=== PATIENT | female | born 1965 | race Caucasian/White ===

== ENCOUNTER 2017-11-14 10:24 | Inpatient (IN) ==
[2017-11-14] MEDS ORDERED: 0.9 % Sodium Chloride 1,000 ML IVC ONE (10:50)
[2017-11-14] MEDS ORDERED: Isovue-370 500 ML INFUS..BTL IV ONE (10:50)
[2017-11-14] MEDS ORDERED: Clindamycin 900 MG/50 ML 900 MG/50 ML IV.SOLN IVPB ONE (10:50)
--- NOTE | 2017-11-14 11:02 | Emergency Department Note ---
Disposition Clinical Impression: Periorbital cellulitis Qualifiers: Laterality: right Qualified Code(s): L03.213 - Periorbital cellulitis Disposition: Admitted As Inpatient Condition: Good Referrals: Tita Golden CNP [Primary Care Provider] - Forms: ED Satisfaction Letter Time of Disposition: 14:30 Dental HPI - General Chief complaint: ED Dental/Oral Stated complaint: dental abscess Time Seen by Provider: 11/14/17 10:43 Source: patient Mode of arrival: ambulatory Limitations: no limitations Nursing Notes Reviewed: Yes Vital Signs Reviewed: Yes - History of Present Illness HPI Narrative: 51 year old female presntes to the ED with complaints of dental abscess and facial pain. She states that she has 9 teeth she plans on having removed over time and it trying to get the money together to have them reoved. PAtinet states that she has two decaying teeth on the right upper molar in her mouth that are likely the source She was seen at urgent care yesterday and treated with clindarmycin and discharge home and states that this morning she wokeup and it was wrose. She had swelling in the right side of her face to her orbits of her eyes without pain with EOM. PAtinet states that she has had mild nausea. Patinet states that she is concerned that the infection is worsenig. No elevation to her tongue and no difficulty with swalowing or breathing. NO fevers. - Related Data Home Medications Medication Instructions Recorded Confirmed Abilify 01/03/15 01/03/15 Adderall 10 mg Tablet 01/03/15 01/03/15 Flexeril 01/03/15 01/03/15 Hydrochlorothiazide 01/03/15 01/03/15 Neurontin 01/03/15 01/03/15 [place] 10-325 mg 01/03/15 01/03/15 [place]-3 01/03/15 01/03/15 Pantoprazole Sodium 01/03/15 01/03/15 Proair Hfa 01/03/15 01/03/15 Previous Rx's Medication Instructions Recorded predniSONE [Prednisone] 20 mg PO DAILY #16 tablet 01/03/15 Cephalexin [Keflex] 1 g PO BID #40 capsule 12/04/16 Cyclobenzaprine [Flexeril] 10 mg PO TID #15 tablet 07/01/17 Allergies Allergy/AdvReac Type Severity Reaction Status Date / Time acetaminophen [From Percocet] Allergy Rash Verified 12/04/16 11:35 armodafinil [From Nuvigil] Allergy Rash Verified 12/04/16 11:40 baclofen Allergy Rash Verified 12/04/16 11:40 ibuprofen Allergy Rash Verified 12/04/16 11:40 meloxicam Allergy Nausea Verified 12/04/16 11:40 milnacipran Allergy Rash Verified 12/04/16 11:40 modafinil [From Provigil] Allergy Rash Verified 12/04/16 11:40 Oxaprozin Allergy Nausea Verified 12/04/16 11:40 Oxycodone [From Percocet] Allergy Rash Verified 12/04/16 11:35 Penicillins [PCN] Allergy Rash Verified 12/04/16 11:35 pregabalin Allergy Rash Verified 12/04/16 11:40 tramadol Allergy Rash Verified 12/04/16 11:40 Constitutional: Denies: fever, chills, weakness, weight change Eyes: Denies: eye pain, eye discharge, vision change ENT ED: Reports: dental pain, other (facial swelling). Denies: ear pain, throat pain, hearing loss, epistaxis, congestion, dysphagia Cardiovascular: Denies: chest pain, palpitations, dyspnea on exertion, edema, syncope Respiratory: Denies: cough, dyspnea, wheezes, hemoptysis, stridor Gastrointestinal: Denies: abdominal pain, nausea, vomiting, diarrhea, constipation, hematemesis, melena, hematochezia Genitourinary: Denies: dysuria, frequency, hematuria, discharge Musculoskeletal: Denies: back pain, neck pain, arthralgia, myalgia Integumentary: Denies: rash, abrasion, lesions Neurological: Denies: headache, weakness, numbness, paresthesias, confusion, abnormal gait, vertigo Psychiatric: Denies: anxiety, depression, suicidal thoughts, homicidal thoughts , auditory hallucinations, visual hallucinations Endocrine: Denies: fatigue Hematological/Lymphatic: Denies: easy bleeding, easy bruising Allergic/Immunologic: Denies: facial swelling, urticaria Past Medical History - Past Medical History Medical history: Reports: non-contributory, other Psychiatric history: Reports: depression - Social History Smoking Status: Never smoker Smokeless Tobacco Status: No Alcohol use: Reports: none Drug use: Reports: none Physical Exam - General Limitations: no limitations General appearance: alert, in no apparent distress - Head Head exam: atraumatic, normocephalic, normal inspection - Eye Eye exam: Present: normal appearance, PERRL, EOMI, periorbital swelling, periorbital tenderness. Absent: conjunctival injection - Expanded Eye Exam Eyelids: right: swelling eyelids Pupils: Bilateral: reactive - ENT ENT exam: normal exam, normal oropharynx, mucous membranes moist - Expanded ENT Exam External ear exam: Present: normal external inspection TM/Canal: Hemotympanum: Negative, Erythema: Negative, Bulging: Negative Nasal speculum exam: Bilateral: normal Mouth exam: Present: normal external inspection, tongue normal. Absent: drooling, trismus, lip swelling, tongue elevation, tounge swelling Teeth exam: Present: dental caries, dental tenderness # 1 - Dental Tenderness (decay) 2 - Fractured, Dental Tenderness (decay) Throat exam: Present: normal inspection - Neck Neck exam: Present: normal inspection, full ROM, trachea midline - Chest Chest inspection: Present: normal inspection, symmetric chest wall rise - Respiratory Respiratory exam: Present: normal lung sounds bilaterally - Cardiovascular Cardiovascular exam: Present: regular rate, normal rhythm, normal heart sounds - Abdominal Exam Abdominal exam: Present: soft, Non-Tender. Absent: tenderness, distention, guarding, rebound, rigidity - Extremities Exam Extremities exam: Present: normal inspection, full ROM. Absent: tenderness, pedal edema - Expanded Upper Extremity Exam Shoulder exam: Present: normal inspection, full ROM Arm exam: Present: normal inspection, full ROM Elbow exam: Present: normal inspection, full ROM Forearm/Wrist exam: Present: normal inspection, full ROM Hand exam: Present: normal inspection, full ROM Vascular exam: Normal: capillary refill, radial pulse - Expanded Lower Extremity Exam Hip/Pelvis exam: Present: normal inspection, full ROM Upper leg exam: Present: normal inspection, full ROM Knee exam: Present: normal inspection, full ROM Lower leg exam: Present: normal inspection, full ROM Ankle exam: Present: normal inspection, full ROM Foot/toe exam: Present: normal inspection, full ROM Neurovascular/Tendon exam: Absent: motor deficit, sensory deficit, tendon deficit - Back Exam Back exam: Present: normal inspection, full ROM. Absent: tenderness - Neurological Exam Neurological exam: Present: alert, oriented X3 - Expanded Neurological Exam Patient oriented to: Present: person, place, time Coma Scale Eye Opening: Spontaneous Coma Scale Motor Response: Obeys Commands Coma Scale Verbal Response: Oriented Coma Scale Total: 15 - Psychiatric Psychiatric exam: Present: normal affect, normal mood - Skin Skin exam: Present: warm, dry, intact, normal color Course Course Narrative: we will do a CT of the face and neckand start IV ABX as this is like periorbital /orbital cellulitis secondary to a dental abscess and rule out Ludwigs - Reevaluation(s) Reevaluation #1: discusse and updated patient and she is agreeable for plan for admission Time: 14:29 - Consultations Consultation #1: discussed case witih Dr. Damon and he acepts patinet for admission. Time: 14:29 Vital Signs Temperature 97.8 F 11/14/17 10:25 Pulse Rate 93 11/14/17 10:25 Respiratory Rate 18 11/14/17 10:25 Blood Pressure 149/86 11/14/17 10:25 O2 Sat by Pulse Oximetry 97 11/14/17 10:25 Temperature 97.8 F 11/14/17 11:04 Pulse Rate 97 11/14/17 14:05 Respiratory Rate 18 11/14/17 14:05 Blood Pressure 129/85 11/14/17 14:05 O2 Sat by Pulse Oximetry 97 11/14/17 14:05 Oxygen Delivery Oxygen Delivery Room Air Dental/Oral - Lab Data Result diagrams: 11/14/17 11:02 11/14/17 11:02 Lab Results 11/14/17 11/14/17 11/14/17 Range/Units 11:02 11:02 11:02 WBC 7.0 (4.3-11.1) K/mcL RBC 4.59 (3.82-4.97) M/mcL Hgb 13.1 (11.5-15.4) g/dL Hct 38.9 (35.3-44.9) % MCV 84.7 (83.0-100.0) fL MCH 28.5 (28.0-33.3) pg MCHC 33.7 (31.6-35.5) g/dL RDW 14.1 (11.5-14.5) % Plt Count 253 (140-400) K/mcL MPV 10.2 (9.4-12.4) fL Immature Gran % 0.3 (0-4) % Seg Neutrophils % 70.7 % Lymphocytes % 19.0 % Monocytes % 7.6 % Eosinophils % 2.0 % Basophils % 0.4 % Neutrophils # 4.9 (1.6-8.9) K/mcL Lymphocytes # 1.3 (0.6-4.6) K/mcL Monocytes # 0.5 (0.0-1.3) K/mcL Eosinophils # 0.1 (0.0-0.6) K/mcL Basophils # 0.0 (0.0-0.2) K/mcL PT 10.6 (9.4-12.1) Seconds INR 1.0 APTT 37.5 H (26.0-36.0) Seconds Sodium 139 (136-145) mEq/L Potassium 4.1 (3.5-5.1) mEq/L Chloride 104 (98-107) mEq/L Carbon Dioxide 27 (23-29) mEq/L BUN 12 (6-20) mg/dL Creatinine 0.67 (0.60-1.20) mg/dL Est GFR ( Amer) > 60 (> 60) Est GFR (Non-Af Amer) > 60 (> 60) BUN/Creatinine Ratio 18 (6-26) Glucose 106 H (70-105) mg/dL Calculated Osmolality 288 (280-300) Lactic Acid (0.5-2.2) mmol/L Calcium 9.3 (8.6-10.3) mg/dL Phosphorus 2.6 L (2.7-4.5) mg/dL Magnesium 2.0 (1.6-2.6) mg/dL Total Bilirubin 0.4 (0.3-1.0) mg/dL Direct Bilirubin 0.2 (0.0-0.2) mg/dL Indirect Bilirubin 0.2 (0.0-1.2) mg/dL AST 17 (13-39) Units/L ALT 16 (7-52) Units/L Alkaline Phosphatase 106 H (34-104) Units/L Troponin I < 0.03 (< 0.04) ng/mL Serum Total Protein 7.1 (6.4-8.9) g/dL Albumin 4.0 (3.5-5.7) g/dL Globulin 3.1 (2.4-3.5) g/dL Albumin/Globulin Ratio 1.3 (1.1-2.2) 11/14/17 Range/Units 11:02 WBC (4.3-11.1) K/mcL RBC (3.82-4.97) M/mcL Hgb (11.5-15.4) g/dL Hct (35.3-44.9) % MCV (83.0-100.0) fL MCH (28.0-33.3) pg MCHC (31.6-35.5) g/dL RDW (11.5-14.5) % Plt Count (140-400) K/mcL MPV (9.4-12.4) fL Immature Gran % (0-4) % Seg Neutrophils % % Lymphocytes % % Monocytes % % Eosinophils % % Basophils % % Neutrophils # (1.6-8.9) K/mcL Lymphocytes # (0.6-4.6) K/mcL Monocytes # (0.0-1.3) K/mcL Eosinophils # (0.0-0.6) K/mcL Basophils # (0.0-0.2) K/mcL PT (9.4-12.1) Seconds INR APTT (26.0-36.0) Seconds Sodium (136-145) mEq/L Potassium (3.5-5.1) mEq/L Chloride (98-107) mEq/L Carbon Dioxide (23-29) mEq/L BUN (6-20) mg/dL Creatinine (0.60-1.20) mg/dL Est GFR ( Amer) (> 60) Est GFR (Non-Af Amer) (> 60) BUN/Creatinine Ratio (6-26) Glucose (70-105) mg/dL Calculated Osmolality (280-300) Lactic Acid 1.0 (0.5-2.2) mmol/L Calcium (8.6-10.3) mg/dL Phosphorus (2.7-4.5) mg/dL Magnesium (1.6-2.6) mg/dL Total Bilirubin (0.3-1.0) mg/dL Direct Bilirubin (0.0-0.2) mg/dL Indirect Bilirubin (0.0-1.2) mg/dL AST (13-39) Units/L ALT (7-52) Units/L Alkaline Phosphatase (34-104) Units/L Troponin I (< 0.04) ng/mL Serum Total Protein (6.4-8.9) g/dL Albumin (3.5-5.7) g/dL Globulin (2.4-3.5) g/dL Albumin/Globulin Ratio (1.1-2.2)
[2017-11-14 11:15] LABS: Basophils % 0.4 %; Eosinophils # 0.1 K/mcL (0.0-0.6); Hematocrit 38.9 % (35.3-44.9); Hemoglobin 13.1 g/dL (11.5-15.4); Immature Granulocytes % 0.3 % (0-4); Lymphocytes # 1.3 K/mcL (0.6-4.6); Mean Corpuscular HGB Conc 33.7 g/dL (31.6-35.5); Mean Corpuscular Hemoglobin 28.5 pg (28.0-33.3); Mean Corpuscular Volume 84.7 fL (83.0-100.0); Mean Platelet Volume 10.2 fL (9.4-12.4); Monocytes # 0.5 K/mcL (0.0-1.3); Monocytes % 7.6 %; Neutrophils # 4.9 K/mcL (1.6-8.9); Platelet Count 253 K/mcL (140-400); Red Blood Count 4.59 M/mcL (3.82-4.97); Red Cell Distribution Width 14.1 % (11.5-14.5); Segmented Neutrophils % 70.7 %
[2017-11-14 11:27] LABS: Troponin I < 0.03 ng/mL (< 0.04)
[2017-11-14 11:28] LABS: Prothrombin Time 10.6 Seconds (9.4-12.1)
[2017-11-14 11:31] LABS: Activated Partial Thrombo Time 37.5 Seconds (26.0-36.0)
[2017-11-14] MEDS ORDERED: Aztreonam 500 MG in 0.9 % Sodium Chloride 50 ML IVPB SCH (12:00)
[2017-11-14 12:29] LABS: Alanine Aminotransferase 16 Units/L (7-52); Albumin/Globulin Ratio 1.3 (1.1-2.2); Alkaline Phosphatase 106 Units/L (34-104); Aspartate Amino Transferase 17 Units/L (13-39); BUN/Creatinine Ratio 18 (6-26); Bilirubin,Direct 0.2 mg/dL (0.0-0.2); Bilirubin,Indirect 0.2 mg/dL (0.0-1.2); Bilirubin,Total 0.4 mg/dL (0.3-1.0); Blood Urea Nitrogen 12 mg/dL (6-20); Calcium 9.3 mg/dL (8.6-10.3); Carbon Dioxide 27 mEq/L (23-29); Chloride 104 mEq/L (98-107); Globulin 3.1 g/dL (2.4-3.5); Glucose 106 mg/dL (70-105); Osmolality,Calculated 288 (280-300); Phosphorous 2.6 mg/dL (2.7-4.5); Potassium 4.1 mEq/L (3.5-5.1); Sodium 139 mEq/L (136-145); Total Protein 7.1 g/dL (6.4-8.9); eGFR For African Americans > 60 (> 60); eGFR For Non-African Americans > 60 (> 60)
[2017-11-14] MEDS ORDERED: *HR* LORazepam 2 MG/ML VIAL IVP ONE (13:12)
[2017-11-14] MEDS ORDERED: *HR* HYDROcodone/Acet 10/325 mg TABLET PO ONE (15:04)
[2017-11-14] MEDS ORDERED: Naloxone 0.4 MG/ML INJ IVP PRN (15:29)
[2017-11-14] MEDS ORDERED: 0.9 % Sodium Chloride 1,000 ML IVC SCH (15:30)
--- NOTE | 2017-11-14 15:47 | Internal Med History&Physical ---
Date of Encounter: 11/14/17 Time of Encounter: 04:00 Internal Medicine - H&P: HPI Chief complaint: facial pain Admitted From: Home Plans for Post Hospital Care: Home History of present illness: Ms. Torres is a 51 year old female with history of teeth problems who was seen by her dentist and prescribed PO Abx. Pt was planned for multiple teeth removal by her dentist. She presented to the ED with facial swelling and pain on the right side of her face. She denied any fever or SOB. Denied any difficulty swallowing. Patient had a CT scan done that was negative for Abscess but it's showing the cellulitis/brenda-orbital cellulitis. Past Med Surg Social Fam HX - Past Medical History Medical history: non-contributory, other Psychiatric history: depression - Social History Smoking Status: Never smoker Smokeless Tobacco Status: No Alcohol use: none Drug use: none - Additional Family History Additional family history: FH reviewed with patient. Denied any significant PFM Internal Medicine - H&P: Meds Aripiprazole [Abilify] 15 mg PO DAILY 11/14/17 [History] Dextroamphetamine/Amphetamine [Adderall 10 mg Tablet] 10 mg PO DAILY 11/14/17 [ History] Dextroamphetamine/Amphetamine [Adderall 30 mg Tablet] 30 mg PO BID 11/14/17 [ History] Estradiol 0.5 mg PO DAILY 11/14/17 [History] Gabapentin [Neurontin] 900 mg PO HS 11/14/17 [History] HYDROcodone/Acet 10/325 mg [[place] 10-325 mg] 1 tab PO Q4HR PRN 11/14/17 [History ] Meclizine HCl [Verticalm] 25 mg PO BID 11/14/17 [History] cloNIDine HCl [CloNIDine HCl] 0.1 mg PO DAILY 11/14/17 [History] 3 Allergy/AdvReac Type Severity Reaction Status Date / Time acetaminophen [From Percocet] Allergy Rash Verified 12/04/16 11:35 armodafinil [From Nuvigil] Allergy Rash Verified 12/04/16 11:40 baclofen Allergy Rash Verified 12/04/16 11:40 ibuprofen Allergy Rash Verified 12/04/16 11:40 meloxicam Allergy Nausea Verified 12/04/16 11:40 milnacipran Allergy Rash Verified 12/04/16 11:40 modafinil [From Provigil] Allergy Rash Verified 12/04/16 11:40 Oxaprozin Allergy Nausea Verified 12/04/16 11:40 Oxycodone [From Percocet] Allergy Rash Verified 12/04/16 11:35 Penicillins [PCN] Allergy Rash Verified 12/04/16 11:35 pregabalin Allergy Rash Verified 12/04/16 11:40 tramadol Allergy Rash Verified 12/04/16 11:40 All Systems PM: A 10-system review of systems was performed and is negative for pertinent findings except as documented above in the HPI. Review of systems: Comprehensive 10 point review of system was done and it was negative other than what was mentioned above. - Constitutional Vitals: Temp Pulse Resp BP Pulse Ox 97.8 F 92 18 138/84 99 11/14/17 11:04 11/14/17 15:06 11/14/17 15:23 11/14/17 15:23 11/14/17 15:06 General appearance: Present: A&O X 3 - Head Head exam: Present: atraumatic, normocephalic - Eye Eye exam: Present: conjunctival injection, periorbital swelling, periorbital tenderness - Respiratory Respiratory exam: Present: CTAB. Absent: accessory muscle use, rales, rhonchi, wheezes - Cardiovascular Cardiovascular exam: Present: RRR, +S1, +S2. Absent: diastolic murmur, gallop, rubs, systolic murmur - GI/Abdominal GI/Abdominal exam: Present: normal bowel sounds, soft, no peritoneal signs. Absent: distended, tenderness - Extremities Exam Extremities exam: Present: warm, radial pulses palpable and symmetrical. Absent : calf tenderness, cyanotic, pedal edema - Neurological Exam Neurological exam: Present: CN II-XII intact, oriented X3, no focal deficits. Absent: pronater drift, facial droop, speech deficit - Skin Additional comments: right facial swelling/erythema Internal Med - H&P Results - Labs CBC & Chem 7: 11/14/17 11:02 11/14/17 11:02 - Assessment and plan (1) Periorbital cellulitis Current Visit: Yes Status: Acute Assessment and plan: start broad spectrum Abx with vanco, clindamycin and aztreonam cultures already sent Abx can be de-escalated as per cultures results and clinical improvement. CT scan didn't show abscess. Pt needs to follow up with her dentist after improvement of this acute episode. Pain control No blurry vision. EOM movements intact. Follow closely. follow labs. Qualifiers: Laterality: right Qualified Code(s): L03.213 - Periorbital cellulitis (2) Hypophosphatasia Current Visit: Yes Status: Acute Assessment and plan: Mild -replaced. Monitor electrolytes and replace as needed. (3) DVT prophylaxis Current Visit: Yes Status: Acute Assessment and plan: Added lovenox SubQ daily - Time Spent With Patient Total time spent is greater than 50% in coordination of care (as documented) at patient's floor/unit and/or counseling patient:
--- NOTE | 2017-11-14 15:56 | Electrocardiograph Report ---
[place] Test Date: 2017-11-14 Pat Name: Yasmin Torres Department: 103 Room: 3A41 Gender: F Scale Tester: ERICH : 1965 Requested By: Selina Farfan Order Number: [id number] Reading MD: Lucian Darden Measurements Intervals Jonancy Rate: 89 P: 46 IL: 150 QRS: 26 QRSD: 95 T: 32 QT: 352 QTc: 399 Interpretive Statements SINUS RHYTHM Electronically Signed On 11-14-2017 15:54:14 EDT by Lucian Darden
[2017-11-14] MEDS ORDERED: Clindamycin 900 MG/50 ML 900 MG/50 ML IV.SOLN IVPB SCH (16:00)
[2017-11-14] MEDS: Aztreonam 2,000 MG in Water for inj. (sterile) 20 ML 20 ML IVP SCH (18:05)
--- NOTE | 2017-11-14 19:22 | Infectious Disease Consult ---
Date of Encounter: 11/14/17 Time of Encounter: 19:20 Assessment and Plan (1) Periorbital cellulitis Status: Acute Assessment and plan: Symptoms started 1 day prior to admission. Likely source is tooth infection Patient failed clindamycin as outpatient Currently patient is on vancomycin and clindamycin I will DC the clindamycin and keep vancomycin and add rocephin monitor patient closely for any drug reaction to rocephin Goal vancomycin trough around 10 Monitor labs and for drug toxicity Qualifiers: Laterality: right Qualified Code(s): L03.213 - Periorbital cellulitis (2) Drug allergy, antibiotic Status: Acute Assessment and plan: Patient tells me she has an allergic reaction to penicillin. She does not remember what was a reaction and she states that happened a long time ago when she was a baby. I think we will be okay trying rocephin (3) Tooth decay Status: Acute Infectious Disease HPI - Data of Consult Patient: new to practice Consult date: 11/14/17 Requesting Physician: Miguel Damon Primary Care Provider: Tita Golden CNP - Consult Narrative Reason for consult: preseptal cellulitis History of present illness: Ms. Torres is a 51 year old female And is a 51-year-old woman who was admitted for periorbital cellulitis. We are consulted for antibiotics recommendations. Patient is a 51-year-old woman with past medical history mentioned below who tells me she was in the usual state of health until a week prior to admission where she was having toothache. Patient states that the toothache was not severe and it went away. Patient states that one day prior to admission she woke up and she had swelling and pain on the right side of the face. Patient went to urgent care where they gave her clindamycin and she took 3 doses but she tells me that the swelling and the pain was worse and her eye became swollen shut. Patient came to the emergency department for evaluation. Since admission, patient has been afebrile. Heart rate has been running in the 90s. Presenting WBC of 7000 with normal differential. The rest of the blood work was really nonrevealing. Patient has normal BUN and creatinine. Blood cultures were obtained and are so far negative. CT of the head and neck was done and it revealed an asymmetric induration of the right facial soft tissue including and the perimandibular region, right cheek and right periorbital soft tissue suggestive of cellulitis. No ramirez abscess. On further questioning of the patient she tells me she has had chronic sinus issues on and off as well. Patient denies any visual changes. Denies any photophobia. Denies any painful I movement. CC: Miguel Damon Past Med Surg Social Fam HX - Past Medical History Medical history: non-contributory, other Psychiatric history: depression - Social History Smoking Status: Never smoker Smokeless Tobacco Status: No Alcohol use: none Drug use: none Infectious Disease-CN:Meds Aripiprazole [Abilify] 15 mg PO DAILY 11/14/17 [History] Dextroamphetamine/Amphetamine [Adderall 10 mg Tablet] 10 mg PO DAILY 11/14/17 [ History] Dextroamphetamine/Amphetamine [Adderall 30 mg Tablet] 30 mg PO BID 11/14/17 [ History] Estradiol 0.5 mg PO DAILY 11/14/17 [History] Gabapentin [Neurontin] 900 mg PO HS 11/14/17 [History] HYDROcodone/Acet 10/325 mg [[place] 10-325 mg] 1 tab PO Q4HR PRN 11/14/17 [History ] Meclizine HCl [Verticalm] 25 mg PO BID 11/14/17 [History] cloNIDine HCl [CloNIDine HCl] 0.1 mg PO DAILY 11/14/17 [History] 3 Allergy/AdvReac Type Severity Reaction Status Date / Time acetaminophen [From Percocet] Allergy Rash Verified 12/04/16 11:35 armodafinil [From Nuvigil] Allergy Rash Verified 12/04/16 11:40 baclofen Allergy Rash Verified 12/04/16 11:40 ibuprofen Allergy Rash Verified 12/04/16 11:40 meloxicam Allergy Nausea Verified 12/04/16 11:40 milnacipran Allergy Rash Verified 12/04/16 11:40 modafinil [From Provigil] Allergy Rash Verified 12/04/16 11:40 Oxaprozin Allergy Nausea Verified 12/04/16 11:40 Oxycodone [From Percocet] Allergy Rash Verified 12/04/16 11:35 Penicillins [PCN] Allergy Rash Verified 12/04/16 11:35 pregabalin Allergy Rash Verified 12/04/16 11:40 tramadol Allergy Rash Verified 12/04/16 11:40 Review of systems: 10 point ROS done, negative other for what's mentioned in the HPI Exam - Constitutional Vitals: Temp Pulse Resp BP Pulse Ox 97.5 F L 98 15 126/82 100 11/14/17 16:13 11/14/17 16:13 11/14/17 16:13 11/14/17 16:13 11/14/17 16:13 General appearance: no acute distress, no febrile - Head Head exam: Present: atraumatic, normocephalic - Eye Eye exam: Present: EOMI, periorbital swelling, periorbital tenderness, PERRL, conjuntiva pink, sclera anicteric. Absent: conjunctival injection - Neck Neck exam: Present: full ROM. Absent: meningismus - Respiratory Respiratory exam: Present: CTAB. Absent: wheezes - Cardiovascular Cardiovascular exam: Present: RRR, +S1 - GI/Abdominal GI/Abdominal exam: Present: soft. Absent: tenderness - Extremities Exam Extremities exam: Present: normal inspection. Absent: joint swelling Infectious Disease CN: Results - Labs CBC & Chem 7: 11/14/17 11:02 11/14/17 11:02 Consult Discharge Plan - Plan Referrals: Tita Golden RAIL EQUIPMENT OPERATOR [Primary Care Provider] -
[2017-11-14] MEDS: cefTRIAXone 1,000 MG in Water for inj. (sterile) 20 ML 10 ML IVP SCH (20:14)
[2017-11-14] MEDS: Gabapentin 300 MG CAPSULE PO SCH (20:15)
[2017-11-14] MEDS: *HR* HYDROcodone/Acet 10/325 mg TABLET PO PRN (20:27)
[2017-11-14] MEDS: Patient Taking Own Medication 1 EACH PO SCH (20:30)
[2017-11-14] MEDS: ARIPiprazole 5 MG TABLET PO SCH (21:45)
[2017-11-14] MEDS ORDERED: Vancomycin (wt based) 1,000 MG VIAL IV SCH (22:00)
[2017-11-15] MEDS: Aztreonam 2,000 MG in Water for inj. (sterile) 20 ML 20 ML IVP SCH ×2 (00:22→06:04)
[2017-11-15] MEDS: *HR* Enoxaparin 40 MG/0.4 ML SYRINGE SQ SCH (06:13)
[2017-11-15 06:34] LABS: Basophils % 0.9 %; Immature Granulocytes % 0.2 % (0-4)
[2017-11-15 06:40] LABS: Eosinophils # 0.2 K/mcL (0.0-0.6); Eosinophils % 4.6 %; Hematocrit 36.5 % (35.3-44.9); Hemoglobin 12.1 g/dL (11.5-15.4); Immature Platelets 3.3 % (1.1-6.1); Lymphocytes % 35.3 %; Mean Corpuscular HGB Conc 33.2 g/dL (31.6-35.5); Mean Corpuscular Hemoglobin 29.1 pg (28.0-33.3); Mean Corpuscular Volume 87.7 fL (83.0-100.0); Mean Platelet Volume 11.2 fL (9.4-12.4); Monocytes # 0.5 K/mcL (0.0-1.3); Monocytes % 11.9 %; Neutrophils # 2.1 K/mcL (1.6-8.9); Platelet Count 192 K/mcL (140-400); Red Blood Count 4.16 M/mcL (3.82-4.97); Red Cell Distribution Width 14.4 % (11.5-14.5); Segmented Neutrophils % 47.1 %
[2017-11-15] MEDS: cloNIDine HCl 0.1 MG TABLET PO SCH (08:12)
[2017-11-15] MEDS: *HR* HYDROcodone/Acet 10/325 mg TABLET PO PRN ×3 (08:12→20:24)
[2017-11-15] MEDS: Patient Taking Own Medication 1 EACH PO SCH (08:12)
[2017-11-15 08:15] LABS: Lymphocytes # 1.6 K/mcL (0.6-4.6)
--- NOTE | 2017-11-15 08:42 | Internal Med Progress Note ---
<Meg Thomas - Last Filed: 11/15/17 08:40> Date of Encounter: 11/15/17 Time of Encounter: 08:40 - Assessment and plan (1) Periorbital cellulitis Current Visit: Yes Status: Acute Assessment and plan: start broad spectrum Abx with vanco and rocephin per infectious disease cultures already sent CT scan didn't show abscess. Pt needs to follow up with her dentist after improvement of this acute episode. Pain control No blurry vision. EOM movements intact. Follow closely. follow labs. Qualifiers: Laterality: right Qualified Code(s): L03.213 - Periorbital cellulitis (2) Hypophosphatasia Current Visit: Yes Status: Acute Assessment and plan: Mild -replaced. Monitor electrolytes and replace as needed. (3) DVT prophylaxis Current Visit: Yes Status: Acute Assessment and plan: Added lovenox SubQ daily - Time Spent With Patient Total time spent is greater than 50% in coordination of care (as documented) at patient's floor/unit and/or counseling patient: - Subjective Interval history: Patient states she is feeling significantly better this morning. Can see well through the eye. No visual disturbances. Swelling has dramatically decreased. Eating and drinking without difficulty. - Constitutional Vitals: Temp Pulse Resp BP Pulse Ox 97.7 F 67 16 120/80 99 11/15/17 06:43 11/15/17 06:43 11/15/17 06:43 11/15/17 06:43 11/15/17 06:43 General appearance: Present: A&O X 3, no acute distress, answers questions appropriately - Head Head exam: Present: atraumatic, normocephalic - Eye Eye exam: Present: EOMI, periorbital swelling (minimal noted around the right eye), periorbital tenderness, PERRL. Absent: scleral icterus - Respiratory Respiratory exam: Present: CTAB. Absent: accessory muscle use, rales, rhonchi, wheezes - Cardiovascular Cardiovascular exam: Present: RRR, +S1, +S2. Absent: diastolic murmur, gallop, rubs, systolic murmur - GI/Abdominal GI/Abdominal exam: Present: normal bowel sounds, soft, no peritoneal signs. Absent: distended, tenderness - Neurological Exam Neurological exam: Present: alert, oriented X3, no focal deficits Internal Medicine: Result - Labs CBC & Chem 7: 11/15/17 05:24 11/14/17 11:02 Labs: Short CBC 11/15/17 Range/Units 05:24 WBC 4.4 (4.3-11.1) K/mcL Hgb 12.1 (11.5-15.4) g/dL Hct 36.5 (35.3-44.9) % Plt Count 192 (140-400) K/mcL Neutrophils # 2.1 (1.6-8.9) K/mcL - ABG Interpretation ABG results: PT/INR, D-dimer PT 10.6 Seconds (9.4-12.1) 11/14/17 11:02 Consult Discharge Plan - Plan Referrals: Tita Golden CNP [Primary Care Provider] - 11/21/17 10:35 am <Siddharth Ramirez - Last Filed: 11/15/17 13:24> Date of Encounter: 11/15/17 - Time Spent With Patient Total time spent is greater than 50% in coordination of care (as documented) at patient's floor/unit and/or counseling patient: - Constitutional Vitals: Temp Pulse Resp BP Pulse Ox 97.6 F 80 15 110/70 93 11/15/17 10:33 11/15/17 10:33 11/15/17 10:33 11/15/17 10:33 11/15/17 10:33 Internal Medicine: Result - Labs CBC & Chem 7: 11/15/17 05:24 11/14/17 11:02 Labs: Short CBC 11/15/17 Range/Units 05:24 WBC 4.4 (4.3-11.1) K/mcL Hgb 12.1 (11.5-15.4) g/dL Hct 36.5 (35.3-44.9) % Plt Count 192 (140-400) K/mcL Neutrophils # 2.1 (1.6-8.9) K/mcL - ABG Interpretation ABG results: PT/INR, D-dimer PT 10.6 Seconds (9.4-12.1) 11/14/17 11:02 - Attending Attestation I examined this patient and my medical decision-making was reviewed with the Resident Physician Dr. Thomas. I agree with the documented findings, disposition and treatment plan as described except to the extent set forth below. Ms. Torres is a 51 year old female with history of teeth problems who was seen by her dentist and prescribed PO Abx. Pt was planned for multiple teeth removal by her dentist. She presented to the ED with facial swelling and pain on the right side of her face. CT of face showed brenda mandibular, brenda orbital cellulities on Rt side noticed. Pt was started on empirical abx Clindamycin and Vancomycin. ID changed abx Clinda to Rocephin. Pt states she is feeling better today. Still has facial swelling. Gen: A, A< O x3 HEENT : Facial swelling, erythema over rt side of face. a/p 1. Acute Rt brenda orbital and brenda mandibular cellulitis 2. Dental caries cont empirical abx Rocephin + Vanco Will talk to ID about anaerobic coverage ..may be adding Flagyl , since this cellulites seems to be due to dental caries cont supportive care
[2017-11-15] MEDS ORDERED: Patient Taking Own Medication 1 EACH PO SCH (09:00)
--- NOTE | 2017-11-15 13:18 | Infectious Disease Progress No ---
Date of Encounter: 11/15/17 Time of Encounter: 13:11 - Assessment and Plan (1) Periorbital cellulitis Current Visit: Yes Status: Acute Symptoms started 1 day prior to admission. Likely source is tooth infection Patient failed clindamycin as outpatient continue vancomycin and add rocephin tolerating rocephin just fine Goal vancomycin trough around 10 Monitor labs and for drug toxicity on discharge consider omnicef and clinda for 10 days total. will sign off, please call us for any new issues. Qualifiers: Laterality: right Qualified Code(s): L03.213 - Periorbital cellulitis (2) Drug allergy, antibiotic Current Visit: Yes Status: Acute Patient tells me she has an allergic reaction to penicillin. She does not remember what was a reaction and she states that happened a long time ago when she was a baby. tolerating rocephin (3) Tooth decay Current Visit: Yes Status: Acute - Subjective Interval history: Patient seen and examined. Doing well clinically. Swelling of the face is improved. Continues to have no photophobia and no pain on eye-movement. No meningeal signs. Patient denies any chest pain no diarrhea no urinary symptoms. Vital signs stable overnight she is afebrile Labs WBC is 4.4 Infect Dis PN-Objective Data - Labs CBC & Chem 7: 11/15/17 05:24 11/14/17 11:02 Labs: Laboratory Results - last 24 hr 11/15/17 11/15/17 05:24 07:10 WBC 4.4 RBC 4.16 Hgb 12.1 Hct 36.5 MCV 87.7 MCH 29.1 MCHC 33.2 RDW 14.4 Plt Count 192 MPV 11.2 Immature Gran % 0.2 Seg Neutrophils % 47.1 Lymphocytes % 35.3 Monocytes % 11.9 Eosinophils % 4.6 Basophils % 0.9 Neutrophils # 2.1 Lymphocytes # 1.6 Monocytes # 0.5 Eosinophils # 0.2 Basophils # 0.0 Immature Plt Fraction 3.3 Specimen Rejected Hemolyzed Exam - Constitutional Vitals: Temp Pulse Resp BP Pulse Ox 97.6 F 80 15 110/70 93 11/15/17 10:33 11/15/17 10:33 11/15/17 10:33 11/15/17 10:33 11/15/17 10:33 General appearance: no acute distress, no febrile - Eye Eye exam: Present: EOMI, periorbital swelling, periorbital tenderness, PERRL - Respiratory Respiratory exam: Present: CTAB - Cardiovascular Cardiovascular exam: Present: RRR, +S1 Consult Discharge Plan - Plan Referrals: Tita Golden CNP [Primary Care Provider] - 11/21/17 10:35 am
[2017-11-15] MEDS ORDERED: 0.9 % Sodium Chloride 250 ML ONE (17:06)
[2017-11-15] MEDS: Gabapentin 300 MG CAPSULE PO SCH (20:23)
[2017-11-15] MEDS: ARIPiprazole 5 MG TABLET PO SCH (20:24)
[2017-11-15] MEDS: cefTRIAXone 1,000 MG in Water for inj. (sterile) 20 ML 10 ML IVP SCH (20:24)
[2017-11-16] MEDS: *HR* HYDROcodone/Acet 10/325 mg TABLET PO PRN ×3 (03:58→18:13)
[2017-11-16] MEDS: *HR* Enoxaparin 40 MG/0.4 ML SYRINGE SQ SCH (05:14)
[2017-11-16] MEDS: Patient Taking Own Medication 1 EACH PO SCH ×3 (05:14→11:43)
[2017-11-16 06:26] LABS: Eosinophils % 3.8 %; Hematocrit 34.7 % (35.3-44.9); Hemoglobin 11.4 g/dL (11.5-15.4); Immature Granulocytes % 0.2 % (0-4); Lymphocytes % 35.5 %; Mean Corpuscular HGB Conc 32.9 g/dL (31.6-35.5); Mean Corpuscular Hemoglobin 28.5 pg (28.0-33.3); Mean Corpuscular Volume 86.8 fL (83.0-100.0); Mean Platelet Volume 10.5 fL (9.4-12.4); Monocytes % 8.8 %; Platelet Count 224 K/mcL (140-400); Red Cell Distribution Width 14.1 % (11.5-14.5); Segmented Neutrophils % 50.8 %
[2017-11-16 06:27] LABS: Basophils % 0.9 %; Eosinophils # 0.2 K/mcL (0.0-0.6); Lymphocytes # 1.5 K/mcL (0.6-4.6); Monocytes # 0.4 K/mcL (0.0-1.3); Neutrophils # 2.1 K/mcL (1.6-8.9)
[2017-11-16 06:42] LABS: BUN/Creatinine Ratio 23 (6-26); Blood Urea Nitrogen 13 mg/dL (6-20); Calcium 8.5 mg/dL (8.6-10.3); Carbon Dioxide 27 mEq/L (23-29); Chloride 108 mEq/L (98-107); Glucose 100 mg/dL (70-105); Osmolality,Calculated 292 (280-300); Potassium 3.9 mEq/L (3.5-5.1); Sodium 141 mEq/L (136-145); eGFR For African Americans > 60 (> 60); eGFR For Non-African Americans > 60 (> 60)
[2017-11-16] MEDS: cloNIDine HCl 0.1 MG TABLET PO SCH (09:42)
[2017-11-16] MEDS ORDERED: Aminoglycoside Consult 1 EACH MC ONE (10:29)
--- NOTE | 2017-11-16 10:55 | Internal Med Progress Note ---
Date of Encounter: 11/16/17 Time of Encounter: 10:52 - Assessment and plan (1) Periorbital cellulitis Current Visit: Yes Status: Acute Assessment and plan: continue IV vancomycin and ceftriaxone, appreciate ID consult, may discharge on clinda and omnicef for total of 10 day if she continues improving tomorrow Qualifiers: Laterality: right Qualified Code(s): L03.213 - Periorbital cellulitis (2) Hypophosphatemia Current Visit: Yes Status: Acute Assessment and plan: repalced, follow up am (3) Obesity (BMI 35.0-39.9 without comorbidity) Current Visit: Yes Status: Acute Assessment and plan: life style modification - Time Spent With Patient Total time spent is greater than 50% in coordination of care (as documented) at patient's floor/unit and/or counseling patient: 25 - 35 minutes - Subjective Interval history: Ms. Torres is a 51 year old female with history of teeth problems who was seen by her dentist and prescribed PO Abx. Pt was planned for multiple teeth removal by her dentist. She presented to the ED with facial swelling and pain on the right side of her face. She denied any fever or SOB. Denied any difficulty swallowing. Patient had a CT scan done that was negative for Abscess but it's showing the cellulitis/brenda-orbital cellulitis. she was admited on 11/14, and started on IV vancomycin and clindamycin and azitreonam due to PCN allergy. ID was consulted, patient tolerated ceftriaxone. Patient is doing ok, facial swelling improved, but still has some redness. will contineu IV vancomycin and ceftriaxone. - Constitutional Vitals: Temp Pulse Resp BP Pulse Ox 97.5 F L 76 14 114/67 99 11/16/17 07:05 11/16/17 07:05 11/16/17 07:05 11/16/17 07:05 11/16/17 07:05 General appearance: Present: A&O X 3, no acute distress, answers questions appropriately Exam: CONSTITUTIONAL: patient appears as an age appropriate female in no acute distress. EYES Clear sclerae, bilateral pupils are equal, reactive to light. EMOI. RESPIRATORY: No accessory muscle use, bilateral clear to auscultation, no wheezing, no crackles/rales. CARDIOVASCULAR: Regular heart rate, normal S1 and S2, no murmurs GASTROINTESTINAL: bowel sounds present, soft, no tenderness. MUSCULOSKELETAL: Joints in normal range of motion, no clubbing, no edema, no cyanosis. Bilateral peripheral pulses 2+. NEUROLOGIC: CN II to XII are grossly intact, no focal neurological deficit. Internal Medicine: Result - Labs CBC & Chem 7: 11/16/17 05:46 11/16/17 05:46 Labs: Short CBC 11/16/17 Range/Units 05:46 WBC 4.2 L (4.3-11.1) K/mcL Hgb 11.4 L (11.5-15.4) g/dL Hct 34.7 L (35.3-44.9) % Plt Count 224 (140-400) K/mcL Neutrophils # 2.1 (1.6-8.9) K/mcL BMP 11/16/17 05:46 Sodium 141 Potassium 3.9 Chloride 108 H Carbon Dioxide 27 BUN 13 Creatinine 0.56 L Glucose 100 Calcium 8.5 L - ABG Interpretation ABG results: PT/INR, D-dimer PT 10.6 Seconds (9.4-12.1) 11/14/17 11:02 Consult Discharge Plan - Plan Referrals: Tita Golden, PHOTOGRAPH PRINTER [Primary Care Provider] - 11/21/17 10:35 am
[2017-11-16] MEDS: Gabapentin 300 MG CAPSULE PO SCH (20:16)
[2017-11-16] MEDS: cefTRIAXone 1,000 MG in Water for inj. (sterile) 20 ML 10 ML IVP SCH (20:16)
[2017-11-16] MEDS: ARIPiprazole 5 MG TABLET PO SCH (20:17)
[2017-11-17] MEDS: *HR* HYDROcodone/Acet 10/325 mg TABLET PO PRN (04:03)
[2017-11-17 04:48] LABS: Basophils % 0.6 %; Eosinophils # 0.2 K/mcL (0.0-0.6); Eosinophils % 3.2 %; Hematocrit 34.7 % (35.3-44.9); Hemoglobin 11.5 g/dL (11.5-15.4); Immature Granulocytes % 0.2 % (0-4); Lymphocytes # 1.7 K/mcL (0.6-4.6); Lymphocytes % 33.9 %; Mean Corpuscular HGB Conc 33.1 g/dL (31.6-35.5); Mean Corpuscular Hemoglobin 28.4 pg (28.0-33.3); Mean Corpuscular Volume 85.7 fL (83.0-100.0); Mean Platelet Volume 10.1 fL (9.4-12.4); Monocytes # 0.5 K/mcL (0.0-1.3); Monocytes % 8.9 %; Neutrophils # 2.7 K/mcL (1.6-8.9); Platelet Count 222 K/mcL (140-400); Red Blood Count 4.05 M/mcL (3.82-4.97); Segmented Neutrophils % 53.2 %
[2017-11-17 05:03] LABS: BUN/Creatinine Ratio 25 (6-26); Blood Urea Nitrogen 14 mg/dL (6-20); Calcium 8.6 mg/dL (8.6-10.3); Carbon Dioxide 24 mEq/L (23-29); Chloride 109 mEq/L (98-107); Glucose 95 mg/dL (70-105); Osmolality,Calculated 294 (280-300); Phosphorous 3.3 mg/dL (2.7-4.5); Potassium 3.9 mEq/L (3.5-5.1); Sodium 142 mEq/L (136-145); eGFR For African Americans > 60 (> 60); eGFR For Non-African Americans > 60 (> 60)
[2017-11-17] MEDS: Patient Taking Own Medication 1 EACH PO SCH ×2 (05:04)
[2017-11-17] MEDS: *HR* Enoxaparin 40 MG/0.4 ML SYRINGE SQ SCH (05:04)
[2017-11-17] MEDS: cloNIDine HCl 0.1 MG TABLET PO SCH (08:31)
[2017-11-17 08:42] VITALS: BP 120/69
--- NOTE | 2017-11-17 09:54 | Discharge Summary ---
Orders not resulted at time of discharge: Pending orders 11/17/17 16:00 Vancomycin,Trough Timed Date of Encounter: 11/17/17 Time of Encounter: 09:48 - Discharge Diagnosis (1) Periorbital cellulitis Priority: Primary Status: Resolved Qualifiers: Laterality: right Qualified Code(s): L03.213 - Periorbital cellulitis (2) Hypophosphatemia Priority: Secondary Status: Resolved (3) Obesity (BMI 35.0-39.9 without comorbidity) Priority: Secondary Status: Chronic Hospital course: Ms. Torres is a 51 year old female with history of teeth problems who was seen by her dentist and prescribed PO Abx. Pt was planned for multiple teeth removal by her dentist. She presented to the ED with facial swelling and pain on the right side of her face. She denied any fever or SOB. Denied any difficulty swallowing. Patient had a CT scan done that was negative for Abscess but it's showing the cellulitis/brenda-orbital cellulitis. she was admited on 11/14, and started on IV vancomycin and clindamycin and azitreonam due to PCN allergy. ID was consulted, patient tolerated ceftriaxone. continue IV vancomycin and ceftriaxone, appreciate ID consult,recommended clinda and omnicef for total of 10 day. patient is doing well, afebrile, normal WBC, facial pain resolved, swelling improved, tolerated diet. patient is instrcuted ot follow up with Dentist in 1 week. Discharge discussed with: patient Time spent discussing smoking cessation with patient: 3 to 10 minutes - Time Spent with Patient Total time spent providing and/or coordinating discharge services: Less than 30 minutes - Discharge Medications Prescriptions: Clindamycin HCl 300 mg PO Q6HR #40 capsule Cefdinir [Omnicef] 300 mg PO BID #20 capsule Home Medications: Aripiprazole [Abilify] 15 mg PO DAILY 11/14/17 [History] Dextroamphetamine/Amphetamine [Adderall 10 mg Tablet] 10 mg PO DAILY 11/14/17 [ History] Dextroamphetamine/Amphetamine [Adderall 30 mg Tablet] 30 mg PO BID 11/14/17 [ History] Estradiol 0.5 mg PO DAILY 11/14/17 [History] Gabapentin [Neurontin] 900 mg PO HS 11/14/17 [History] HYDROcodone/Acet 10/325 mg [[place] 10-325 mg] 1 tab PO Q4HR PRN 11/14/17 [History ] Meclizine HCl [Verticalm] 25 mg PO BID 11/14/17 [History] cloNIDine HCl [CloNIDine HCl] 0.1 mg PO DAILY 11/14/17 [History] Cefdinir [Omnicef] 300 mg PO BID #20 capsule 11/17/17 [Rx] Clindamycin HCl 300 mg PO Q6HR #40 capsule 11/17/17 [Rx] Allergies/Adverse Reactions: 3 Allergy/AdvReac Type Severity Reaction Status Date / Time acetaminophen [From Percocet] Allergy Rash Verified 12/04/16 11:35 armodafinil [From Nuvigil] Allergy Rash Verified 12/04/16 11:40 baclofen Allergy Rash Verified 12/04/16 11:40 ibuprofen Allergy Rash Verified 12/04/16 11:40 meloxicam Allergy Nausea Verified 12/04/16 11:40 milnacipran Allergy Rash Verified 12/04/16 11:40 modafinil [From Provigil] Allergy Rash Verified 12/04/16 11:40 Oxaprozin Allergy Nausea Verified 12/04/16 11:40 Oxycodone [From Percocet] Allergy Rash Verified 12/04/16 11:35 Penicillins [PCN] Allergy Rash Verified 12/04/16 11:35 pregabalin Allergy Rash Verified 12/04/16 11:40 tramadol Allergy Rash Verified 12/04/16 11:40 Date of admission: 11/14/17 18:34 Primary care physician: Tita Golden CNP - Constitutional Vitals: Temp Pulse Resp BP Pulse Ox 97.8 F 72 15 120/69 99 11/17/17 03:51 11/17/17 03:51 11/17/17 03:51 11/17/17 08:42 11/17/17 03:51 General appearance: Present: A&O X 3, no acute distress, answers questions appropriately Exam: CONSTITUTIONAL: patient appears as an age appropriate female in no acute distress. EYES Clear sclerae, bilateral pupils are equal, reactive to light. EMOI. RESPIRATORY: No accessory muscle use, bilateral clear to auscultation, no wheezing, no crackles/rales. CARDIOVASCULAR: Regular heart rate, normal S1 and S2, no murmurs GASTROINTESTINAL: bowel sounds present, soft, no tenderness. MUSCULOSKELETAL: Joints in normal range of motion, no clubbing, no edema, no cyanosis. Bilateral peripheral pulses 2+. NEUROLOGIC: CN II to XII are grossly intact, no focal neurological deficit. - Patient Status Disposition: Home, Self-Care Functional capacity at discharge: independent ambulation Overall status at discharge: patient is back to baseline - Discharge Instructions Follow Up With: iTta Golden CNP [Primary Care Provider] - 11/21/17 10:35 am - Diet and Activity Diet: advance to your usual diet
== END 2017-11-17 10:30 | disposition home or self-care (01) | DRG 603 ==
LOC: 3ANU 10:24 → EMEROO 10:24 → 3ANU 15:50 → SUATTDRO 18:34
PROVIDERS: ADMIT Hospitalist; ATTEND Hospitalist